=== PATIENT | male | born 2000 | race African-American/Black ===

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

== ENCOUNTER 2019-01-19 22:28 | Emergency (ER) | payer SELFPAY ==
[~2019-01-19 22:28] MED LIST: Iopamidol-370 76% 500 ML 1 ML ONE
[2019-01-19] MEDS ORDERED: Ketorolac Tromethamine 30 MG/ML VIAL ONE (23:03)
[2019-01-19 23:25] LABS: #Eosinphils 0.1 thou/uL (0.0-0.7); #Monocytes 0.3 thou/uL (0.11-0.59); #Neutrophils 2.4 thou/uL (1.40-6.50); %Basophils 0.8 % (0.0-1.0); %Eosinophils 1.4 % (0.0-10.0); %Lymphocytes 41.4 % (28.0-48.0); %Monocytes 5.9 % (0.0-4.0); %Neutrophils 50.5 % (31.0-61.0); Mean Corpuscular HGB CONC 32.8 g/dL (32.0-36.0); Mean Corpuscular Volume 91.5 fL (78.0-98.0); Mean Platelet Volume 8.1 fL (7.4-10.4); Platelet Count 198 thou/uL (130-400); RBC Distribution Width 11.8 % (11.5-14.5); Red Blood Cell (RBC) Count 5.35 mill/uL (4.00-5.20); White Blood Cell (WBC) Count 4.8 thou/uL (4.8-10.8)
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
[2019-01-19 23:47] LABS: ALT (SGPT) 10 U/L (8-55); AST (SGOT) 13 U/L (10-45); Albumin 4.3 g/dL (3.5-5.0); Alkaline Phosphatase 88 U/L (50-130); Anion Gap 10 mmol/L (10-20); BUN (Urea Nitrogen) 13 mg/dL (8.4-21.0); Bilirubin, Total 0.4 mg/dL (0.2-1.2); Calc. Creatinine Clearance 0 mL/min (70-130); Calcium 9.3 mg/dL (7.8-10.44); Carbon Dioxide 30 mmol/L (22-29); Chloride 103 mmol/L (98-107); Estimated GFR-MDRD Greater than 90; Globulin 3.3 g/dL (2.4-3.5); Glucose 91 mg/dL (70-105); Potassium 3.9 mmol/L (3.5-5.1); Protein, Total 7.6 g/dL (6.0-8.3); Sodium 139 mmol/L (136-145)
== END 2019-01-20 00:42 | disposition home or self-care (01) ==
LOC: ERS 22:28
DX: K42.9 Umbilical hernia without obstruction or gangrene (principal); K21.9 Gastro-esophageal reflux disease without esophagitis; J45.909 Unspecified asthma, uncomplicated; F41.9 Anxiety disorder, unspecified; Z79.899 Other long term (current) drug therapy; Z79.51 Long term (current) use of inhaled steroids
CPT/HCPCS: 74177; 80053; 85025; 96374; J1885; Q9967

== ENCOUNTER 2019-02-05 19:48 | Emergency (ER) | payer SELFPAY ==
[2019-02-05 20:06] LABS: Bilirubin Negative (Negative); Blood, Urine Negative (Negative); Clarity Clear (Clear); Glucose, Urine (Dipstick) Normal (Negative); Leukocyte Negative Leu/uL (Negative); Nitrite Negative (Negative); Protein, Urine (Dipstick) 10 mg/dL (Neg-Trace); Urobilinogen Normal mg/dL (Less than 2)
[2019-02-05 20:10] LABS: #Basophils 0.1 thou/uL (0.0-0.2); #Eosinphils 0.1 thou/uL (0.0-0.7); #Lymphocytes 1.9 thou/uL (1.20-3.40); #Monocytes 0.4 thou/uL (0.11-0.59); #Neutrophils 1.8 thou/uL (1.40-6.50); %Basophils 1.9 % (0.0-1.0); %Eosinophils 2.7 % (0.0-10.0); %Lymphocytes 44.2 % (28.0-48.0); %Monocytes 9.3 % (0.0-4.0); Hemoglobin 15.7 g/dL (14.0-18.0); Mean Corpuscular HGB CONC 33.8 g/dL (32.0-36.0); Mean Corpuscular Hemoglobin 30.5 pg (25.0-35.0); Mean Corpuscular Volume 90.3 fL (78.0-98.0); Mean Platelet Volume 8.4 fL (7.4-10.4); Platelet Count 187 thou/uL (130-400); RBC Distribution Width 11.7 % (11.5-14.5); Red Blood Cell (RBC) Count 5.15 mill/uL (4.00-5.20); White Blood Cell (WBC) Count 4.4 thou/uL (4.8-10.8)
[2019-02-05 20:31] LABS: ALT (SGPT) 8 U/L (8-55); AST (SGOT) 14 U/L (10-45); Albumin 4.5 g/dL (3.5-5.0); Alkaline Phosphatase 84 U/L (50-130); Anion Gap 9 mmol/L (10-20); BUN (Urea Nitrogen) 17 mg/dL (8.4-21.0); Bilirubin, Total 0.6 mg/dL (0.2-1.2); Calc. Creatinine Clearance 0 mL/min (70-130); Calcium 9.5 mg/dL (7.8-10.44); Carbon Dioxide 32 mmol/L (22-29); Chloride 104 mmol/L (98-107); Estimated GFR-MDRD Greater than 90; Globulin 3.3 g/dL (2.4-3.5); Glucose 87 mg/dL (70-105); Potassium 4.2 mmol/L (3.5-5.1); Protein, Total 7.8 g/dL (6.0-8.3); Sodium 141 mmol/L (136-145)
--- NOTE | 2019-02-05 21:11 | CT ---
CT ABDOMEN AND PELVIS WITH IV CONTRAST: 02/05/19 INDICATIONS: Right upper quadrant abdominal pain. Comparison made to recent CT abdomen and pelvis dated 01/19/19. Lung bases clear. There is enhancing n odule in the peripheral right lobe of the liver along the lateral margin measuring 1.7 cm. This is un changed from 01/19/19 and is consistent with a vascular lesion such as flash filling hemangioma as thad cribed on the prior study. Spleen and pancreas unremarkable. Kidneys unremarkable. Stomach is mildly distended with ingested material. Small bowel loops are normal caliber. Appendix is not identified. Radiopaque suture along the cecum probably represents prior appendectomy procedure. Prominent stool throughout the colon. No evidence o f mass or adenopathy. Nonspecific mesenteric lymph nodes. These lymph nodes are stable in appearance from the recent study. IMPRESSION: No acute process. POS: [facility]
== END 2019-02-05 22:28 | disposition home or self-care (01) ==
LOC: ERS 19:48
DX: R10.31 Right lower quadrant pain (principal); K21.9 Gastro-esophageal reflux disease without esophagitis; J45.909 Unspecified asthma, uncomplicated; F41.9 Anxiety disorder, unspecified
CPT/HCPCS: 36415; 74177; 80053; 81003; 83690; 85025

== ENCOUNTER 2019-02-28 16:41 | Emergency (ER) | payer SELFPAY ==
[2019-02-28] MEDS ORDERED: Ibuprofen 200 MG TAB ONE (16:54)
== END 2019-02-28 17:41 | disposition home or self-care (01) ==
LOC: ERS 16:41
DX: J10.1 Influenza due to other identified influenza virus with other respiratory manifestations (principal); K21.9 Gastro-esophageal reflux disease without esophagitis; J45.909 Unspecified asthma, uncomplicated; F41.9 Anxiety disorder, unspecified; Z79.899 Other long term (current) drug therapy; Z79.51 Long term (current) use of inhaled steroids
CPT/HCPCS: 87804; 99284

== ENCOUNTER 2019-09-05 02:14 | Emergency (ER) | payer SELFPAY | END 2019-09-05 03:00 | disposition home or self-care (01) | LOC: ERS 02:14 | DX: L03.116 Cellulitis of left lower limb (principal); K21.9 Gastro-esophageal reflux disease without esophagitis; J44.9 Chronic obstructive pulmonary disease, unspecified; Z79.899 Other long term (current) drug therapy | CPT/HCPCS: 99283 ==

== ENCOUNTER 2019-09-17 12:08 | Emergency (ER) | payer SELFPAY ==
[2019-09-17] MEDS ORDERED: EPINEPHrine 1 MG/10 ML Abboject SYRINGE ONE (12:38)
== END 2019-09-17 12:28 | disposition home or self-care (01) ==
LOC: ERS 12:08
DX: Z11.3 Encounter for screening for infections with a predominantly sexual mode of transmission (principal)
CPT/HCPCS: 99281; J0171

== ENCOUNTER 2020-01-16 06:52 | Emergency (ER) | payer SELFPAY ==
[2020-01-16] MEDS ORDERED: Ondansetron PF 4 MG/2 ML Vial ONE (08:20)
[2020-01-16 08:44] LABS: #Lymphocytes 0.7 thou/uL (1.20-3.40); #Monocytes 0.4 thou/uL (0.11-0.59); #Neutrophils 1.7 thou/uL (1.40-6.50); %Basophils 0.2 % (0.0-1.0); %Eosinophils 0.4 % (0.0-10.0); %Lymphocytes 25.3 % (28.0-48.0); %Monocytes 14.3 % (0.0-4.0); %Neutrophils 59.8 % (31.0-61.0); Mean Corpuscular HGB CONC 32.6 g/dL (32.0-36.0); Mean Corpuscular Hemoglobin 29.8 pg (25.0-35.0); Mean Corpuscular Volume 91.6 fL (78.0-98.0); Mean Platelet Volume 8.6 fL (7.4-10.4); Platelet Count 150 thou/uL (130-400); RBC Distribution Width 11.7 % (11.5-14.5); Red Blood Cell (RBC) Count 5.03 mill/uL (4.00-5.20); White Blood Cell (WBC) Count 2.9 thou/uL (4.8-10.8)
--- NOTE | 2020-01-16 09:11 | CT ---
CT of the abdomen and pelvis: 01/16/2020 COMPARISON: 02/05/2019 HISTORY: Nausea and vomiting with abdominal pain TECHNIQUE: Axial CT imaging at 5 mm intervals through the abdomen and pelvis with IV contrast. Berry l and sagittal reformatted imaging obtained. FINDINGS: The visualized lung bases are unremarkable. No free intraperitoneal air or fluid is seen. There are peripheral areas of hyperenhancement within the hepatic parenchyma including the posterior lateral aspect of the right lobe and the inferior aspect of the right lobe, similar when compared to 01/19/2019 exam, suggesting a vascular phenomenon such as transient hepatic attenuation differences . No acute abnormality is seen within the liver or spleen. The gallbladder is partially decompressed and grossly unremarkable, not optimally assessed via CT. The pancreas, adrenal glands, a nd kidneys appear grossly unremarkable. Limited assessment of the bowel without oral contrast media demonstrates no acute findings. The vascu lar structures of the abdomen/pelvis appear patent. No abdominal or pelvic lymphadenopathy is seen. No acute osseous abnormality is noted. IMPRESSION: No acute findings.
[2020-01-16 09:13] LABS: ALT (SGPT) 12 U/L (8-55); AST (SGOT) 15 U/L (5-34); Alkaline Phosphatase 60 U/L (50-130); Anion Gap 14 mmol/L (10-20); BUN (Urea Nitrogen) 11 mg/dL (8.9-20.6); Bilirubin, Total 0.5 mg/dL (0.2-1.2); Calc. Creatinine Clearance 0 mL/min (70-130); Calcium 8.8 mg/dL (7.8-10.44); Carbon Dioxide 27 mmol/L (22-29); Chloride 103 mmol/L (98-107); Estimated GFR-MDRD 88; Glucose 100 mg/dL (70-105); Lipase 16 U/L (8-78); Potassium 3.9 mmol/L (3.5-5.1); Sodium 140 mmol/L (136-145)
[2020-01-16] MEDS ORDERED: Iopamidol-370 76% 500 ML 1 ML ONE (09:22)
== END 2020-01-16 10:06 | disposition home or self-care (01) ==
LOC: ERS 06:52
DX: R11.2 Nausea with vomiting, unspecified (principal); F41.9 Anxiety disorder, unspecified; R10.31 Right lower quadrant pain; Z79.899 Other long term (current) drug therapy
CPT/HCPCS: 36415; 74177; 80053; 83690; 85025; 96372; 96374; J0500; J2405

== ENCOUNTER 2020-03-03 18:43 | Emergency (ER) | payer SELFPAY ==
--- NOTE | 2020-03-05 12:18 | EKG ---
Test Reason : Blood Pressure : / mmHG Vent. Rate : 116 BPM Atrial Rate : 116 BPM P-R Int : 136 ms QRS Dur : 086 ms QT Int : 326 ms P-R-T Axes : 074 062 016 degrees QTc Int : 453 ms Poor data quality, interpretation may be adversely affected Sinus tachycardia Possible Left atrial enlargement Borderline ECG Confirmed by UZAIR LERMA DO ([id number]), editor continuity and script YULIANA ALEXANDER ([id number]) on 03/05/2020 12:18:46 PM Referred By: Confirmed By:UZAIR LERMA DO
== END 2020-03-03 20:38 | disposition home or self-care (01) ==
LOC: ERS 18:43
DX: J45.909 Unspecified asthma, uncomplicated (principal); R00.2 Palpitations
CPT/HCPCS: 93005

== ENCOUNTER 2020-06-07 07:02 | Emergency (ER) | payer SELFPAY ==
[2020-06-07] MEDS ORDERED: Dexamethasone 4 MG TAB ONE (07:29)
== END 2020-06-07 09:27 | disposition home or self-care (01) ==
LOC: ERS 07:02
DX: J45.901 Unspecified asthma with (acute) exacerbation (principal)
CPT/HCPCS: 94640; J8540

== ENCOUNTER 2021-06-28 00:11 | Emergency (ER) | payer SELFPAY ==
[2021-06-28] MEDS ORDERED: Morphine 4 MG/ML VIAL ONE (00:24)
[2021-06-28] MEDS ORDERED: Ondansetron PF 4 MG/2 ML Vial ONE ×2 (00:25→00:27)
[2021-06-28 00:47] LABS: #Eosinphils 0.1 thou/uL (0.0-0.7); #Lymphocytes 0.6 thou/uL (1.20-3.40); #Monocytes 0.5 thou/uL (0.11-0.59); #Neutrophils 10.2 thou/uL (1.40-6.50); %Basophils 0.4 % (0.0-1.0); %Eosinophils 0.7 % (0.0-10.0); %Lymphocytes 4.8 % (21.0-51.0); %Monocytes 4.8 % (0.0-10.0); %Neutrophils 89.3 % (42.0-75.0); Mean Corpuscular Hemoglobin 31.1 pg (27.0-31.0); Mean Platelet Volume 8.4 fL (7.4-10.4); Platelet Count 150 thou/uL (130-400); RBC Distribution Width 12.2 % (11.5-14.5); Red Blood Cell (RBC) Count 5.48 mill/uL (4.70-6.10); White Blood Cell (WBC) Count 11.4 thou/uL (4.8-10.8)
[2021-06-28 00:50] LABS: Bacteria/HPF None Seen HPF (None Seen); Bilirubin Negative (Negative); Blood, Urine Trace (Negative); Clarity Clear (Clear); Glucose, Urine (Dipstick) Normal (Negative); Ketone, Urine Negative (Negative); Leukocyte Negative Leu/uL (Negative); Nitrite Negative (Negative); Protein, Urine (Dipstick) 30 mg/dL (Neg-Trace); RBC/HPF 0-3 HPF (0-3); Specific Gravity, Urine 1.037 (1.002-1.036); Squamous Epithelial None Seen HPF (0-3); Urobilinogen Normal mg/dL (Less than 2); WBC/HPF 0-3 HPF (0-3); pH, Urine 5.5 (5.0-9.0)
[2021-06-28 01:06] LABS: ALT (SGPT) 15 U/L (8-55); AST (SGOT) 18 U/L (5-34); Albumin 4.4 g/dL (3.5-5.0); Alkaline Phosphatase 62 U/L (40-110); Anion Gap 13 mmol/L (10-20); BUN (Urea Nitrogen) 17 mg/dL (8.9-20.6); Bilirubin, Total 1.5 mg/dL (0.2-1.2); Calc. Creatinine Clearance 0 mL/min (70-130); Carbon Dioxide 26 mmol/L (22-29); Chloride 104 mmol/L (98-107); Globulin 3.5 g/dL (2.4-3.5); Glucose 118 mg/dL (70-105); Lipase 17 U/L (8-78); Potassium 4.1 mmol/L (3.5-5.1); Protein, Total 7.9 g/dL (6.0-8.3); Sodium 139 mmol/L (136-145)
[2021-06-28 02:30] LABS: Calcium 9.5 mg/dL (7.8-10.44)
== END 2021-06-28 00:48 | disposition home or self-care (01) ==
LOC: ERS 00:11
DX: R10.84 Generalized abdominal pain (principal); R11.2 Nausea with vomiting, unspecified; R19.7 Diarrhea, unspecified
CPT/HCPCS: 80053; 81003; 81015; 83690; 85025; 96374; 96375; J2270; J2405

== ENCOUNTER 2022-07-31 11:24 | Emergency (ER) | payer SELFPAY | END 2022-07-31 13:00 | disposition home or self-care (01) | LOC: ERS 11:24 | DX: S60.221A Contusion of right hand, initial encounter (principal); W22.09XA Striking against other stationary object, initial encounter ==

== ENCOUNTER 2023-06-28 16:11 | Emergency (ER) | payer SELFPAY | END 2023-06-28 17:04 | LOC: ERS 16:11 | DX: Z53.21 Procedure and treatment not carried out due to patient leaving prior to being seen by health care provider (principal) ==